=== PATIENT | male | born 1980 | race Caucasian/White ===

== ENCOUNTER 2018-04-15 21:13 | Emergency (ER) | payer OTHER ==
[~2018-04-15] VITALS: Ht 182.9 cm; Wt 88.5 kg
--- NOTE | ~2018-04-15 | EKG ---
[address] [address] ELECTROCARDIOGRAM REPORT Name: MARIA ELENA NORTH Room #: [facility]#: [id number] Admission: 04/15/18 Attend Phys: Discharge: 04/16/18 Date of : 76 Report #: [id number] THIS REPORT FOR: //name// [facility] ED Test Date: 2018-04-15 Test Time: 21:19:38 Pat Name: MARIA ELENA NORTH Department: Room: Gender: M Supervisor [employer]: JAYLYN : 1980 Requested By: Courtney Brock Order Number: [id number] MD: Dwight Buenrostro Measurements Intervals [place] Rate: 84 P: 40 NC: 207 QRS: 45 QRSD: 101 T: 27 QT: 365 QTc: 432 Interpretive Statements Sinus rhythm Borderline prolonged NC interval No previous ECG available for comparison Electronically Signed On 04-16-2018 8:17:43 [employer] by Dwight Buenrostro [email or web address] <ELECTRONICALLY SIGNED> By: Dwight Buenrostro MD, [facility] 04/16/18 0817 2119 18 Dwight Buenrostro MD, FACC /EPI
[2018-04-15 22:49] LABS: ABSOLUTE NEUTROPHILS 3.1 thou/uL (1.4-8.2); BASOPHILS 1.4 % (0.0-2.0); EOSINOPHILS 5.5 % (0.0-3.0); HEMATOCRIT 43.9 % (42.0-52.0); LYMPHOCYTES 37.4 % (24.0-44.0); MCH 32.6 pg (26.0-34.0); MCHC 34.2 g/dL (28.0-37.0); MCV 95.3 fL (80.0-100.0); MONOCYTES 10.4 % (1.0-8.0); PLATELET COUNT 247 thou/uL (150-400); POLYS 45.3 % (36.0-66.0); RBC 4.61 mil/uL (4.50-6.00); RDW 12.7 % (10.5-14.5); WBC 6.8 thou/uL (4.0-11.0)
[2018-04-15 23:13] LABS: ANION GAP 13 mmol/L (7-16); BUN 11 mg/dL (7-18); CALCIUM 9.1 mg/dL (8.5-10.1); CHLORIDE 102 mmol/L (98-107); CO2 24 mmol/L (21-32); CREATININE 0.8 mg/dL (0.7-1.3); GLUCOSE 94 mg/dL (74-106); POTASSIUM 3.9 mmol/L (3.5-5.1); SODIUM 139 mmol/L (136-145)
[2018-04-15 23:16] LABS: TROPONIN-I <0.06 ng/mL (<0.06)
[2018-04-15 23:21] LABS: AMP/METHAMP Negative (Negative); BARBITURATES Negative (Negative); BENZODIAZEPINES Negative (Negative); COCAINE Negative (Negative); METHADONE Negative (Negative); OPIATES Negative (Negative); PCP Negative (Negative)
[2018-04-16 00:14] VITALS: BP 155/98
== END 2018-04-16 00:16 | disposition home or self-care (01) ==
LOC: ER 21:13
PROVIDERS: Student in an Organized Health Care Education/Training Program
DX: F10.129 Alcohol abuse with intoxication, unspecified (principal); F17.220 Nicotine dependence, chewing tobacco, uncomplicated; J45.909 Unspecified asthma, uncomplicated; Z90.89 Acquired absence of other organs; Z88.0 Allergy status to penicillin; Y90.0 Blood alcohol level of less than 20 mg/100 ml

== ENCOUNTER → 2018-05-14 | Outpatient (CLI) | payer OTHER ==
--- NOTE | ~2018-05-14 | EXE ---
[facility] [place] [address] STRESS ECHOCARDIOGRAM Name: CANJOSEPH PIMENTEL Room #: REG [facility]#: [id number] Admission: 05/14/18 Attend Phys: Gerardo Coleman MD Discharge: Date of : 76 Date of Service: 05/14/18 1420 Report #: [id number] THIS REPORT FOR: //name// APPROVED REPORT Study performed: 05/14/2018 13:02:48 Exam: Stress Echocardiogram Indication: Chest pain Patient Location: Out-Patient Stress Nurse: Kimmy Link RN Status: routine Ht: 6 ft 0 in Rhythm: NSR Medical History Medical History: HTN Medications: Hydralazine Allergies: Penicillins, Amoxicillin Cardiac Risk Factors: HTN Procedure The patient underwent an Exercise Stress Test using the Holger Protocol. Blood pressure, heart rate, and EKG were monitored. An Echocardiogram was performed by poultry field service technician in four stages in quad fashion. At peak stress, four selected images were obtained and placed side by side with resting images for comparison. Stress Test Details Stress Test: Exercise stress testing was performed using a Holger protocol. HR Resting HR: 92 bpm Max Heart Rate (APMHR): 181 bpm Max HR Achieved: 193 bpm Target HR (85% APMHR): 153 bpm % of APMHR: 106 Recovery HR: 107 bpm HR response to stress: Normal HR response to stress BP Resting BP: 162/95 mmHg Max BP: 210/80 mmHg Recovery BP: 166/88 mmHg BP response to stress: Normal blood pressure response to stress. [facility] [address] [place] [address] STRESS ECHOCARDIOGRAM Name: JOSEPH NORTH Room #: REG CL [facility]#: [id number] Admission: 05/14/18 Attend Phys: Gerardo Coleman MD Discharge: Date of : 76 Date of Service: 05/14/18 1420 Report #: [id number] Resting ECG: Sinus Rhythm Stress ECG: Sinus Rhythm, nonspecific ST-T abnormalities ST Change: Non-ischemic Clinical Reason for Termination: Maximal effort Stress Symptoms: Dyspnea Exercise duration: 11 min 11 sec Highest Stage Achieved: Stage 4: 4.2 mph at 16% grade. Exercise capacity: 13.70 METs Pre-Stress Echo The resting Echocardiogram showed normal left ventricular contractility with an estimated Ejection Fraction of about >55%. Normal wall motion in all segments on baseline images. Post-Stress Echo The stress Echocardiogram showed normal left ventricular contractility with an estimated Ejection Fraction of about 65-70%. Normal augmentation of wall motion in all segments on post stress images. Clinical Normal augmentation of myocardial wall segments using a 17 segment model. No clinical or ECG evidence for ischemia. Conclusion Clinical Response: Non-ischemic Exercise Capacity: Above average Stress ECG Response: Non-ischemic Stress Echo Images: Non-ischemic The left ventricle is normal in size and wall thickness in both the rest and stress images. <Conclusion> The left ventricle is normal in size and wall thickness in both the rest and stress images. <ELECTRONICALLY SIGNED> By: Gerardo Coleman MD 05/14/18 1420 142 142 Gerardo Coleman MD /INF
== END ==
LOC: CV 11:39
DX: R07.89 Other chest pain (principal); I10 Essential (primary) hypertension